=== PATIENT | female | born 1970 | race Hispanic/Latino ===

== ENCOUNTER 2018-03-30 18:25 | Emergency (ER) | payer BC ==
[2018-03-30 19:16] LABS: Absolute Monocytes 0.7 K/uL (0.1-1.3); Absolute Neutrophil 6.3 K/uL (1.8-8.0); Basophils % 0.6 % (0-1.3); Hematocrit 42.2 % (36.0-45.0); Lymphocytes % 28.7 % (15.3-44.8); MCV 85.6 fL (80-100); MPV 8.7 fL (7.6-11.3); Monocytes % 6.8 % (3.3-12.3); RBC Red Blood Cell Count 4.93 M/uL (3.86-4.86)
[2018-03-30 19:25] LABS: Potassium 3.7 mmol/L (3.5-5.1)
[2018-03-30] MEDS ORDERED: NA CHLORIDE 0.9% 1,000 ML ONE (19:33)
[2018-03-30] MEDS ORDERED: TETANUS & DIPHTHERIA TOX,ADULT 0.5 ML VIAL ONE (19:33)
[2018-03-30 19:40] LABS: Urine Blood TRACE (NEG); Urine Glucose NEGATIVE (NEG); Urine Protein TRACE (NEG); Urine Specific Gravity >1.030 (1.005-1.030)
[2018-03-30 19:40] LABS: Urine Bacteria <20 /HPF (<20); Urine Culture Reflex Order NOT NEEDED; Urine Mucus 3+ /HPF (NONE SEEN); Urine RBC <5 /HPF (NONE SEEN)
[2018-03-30] MEDS ORDERED: FENTANYL CITR 100 MCG/2 ML ONE (19:58)
--- NOTE | 2018-03-30 20:11 | RAD REPORT ---
EXAM DESCRIPTION: CT - Chest Abdomen Pelvis W Cont - 03/30/2018 7:58 pm CLINICAL HISTORY: Chest and abdomen pain. TRAUMA COMPARISON: No comparisons TECHNIQUE: Approximately 100 mL nonionic IV contrast was administered to the patient. All CT scans are performed using dose optimization technique as appropriate and may include automated exposure control or mA/KV adjustment according to patient size. FINDINGS: The lungs are clear.Cholecystectomy clips.No pleural or pericardial effusion.No intrathora cic adenopathy. The liver, spleen, pancreas, adrenal glands and kidneys are within normal limits. No bowel obstruction, free air, free fluid or abscess. Normal appendix. No pathologic lymphadenopath y in the abdomen or pelvis. No worrisome osseous finding. No fracture is seen. IUD is present uterus. IMPRESSION: No acute abnormality is detected.
--- NOTE | 2018-03-30 20:31 | ER ---
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 Abrasions noted to left flank. Respirations are even and unlabored. Care prior to arrival: None. Mechanism of Injury: Fall from ladder approximately 4 feet. Trauma event details: Injury occurred in the [facility], Injury occurred: at home. Injury occurred: March 30, 2018 Injury occurred at: 17:45. 18:30 Acuity: DARVIN 4 aj 18:30 Method Of Arrival: Wheelchair aj 19:08 Transition of care: patient was not received from another setting of care. Onset of kr2 symptoms was March 30, 2018. Risk Assessment: Do you want to hurt yourself or someone else? Patient reports no desire to harm self or others. Initial Sepsis Screen: Does the patient meet any 2 criteria? No. Patient's initial sepsis screen is negative. Does the patient have a suspected source of infection? No. Patient's initial sepsis screen is negative. 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 - Social history:: Smoking status: Patient/guardian denies using tobacco. - Ebola Screening: : Patient negative for fever greater than or equal to 101.5 degrees Fahrenheit, and additional compatible Ebola Virus Disease symptoms Patient denies exposure to infectious person Patient denies travel to an Ebola-affected area in the 21 days before illness onset No symptoms or risks identified at this time. Screenin:06 Abuse screen: Denies threats or abuse. Denies injuries from another. Nutritional kr2 screening: No deficits noted. Tuberculosis screening: No symptoms or risk factors identified. Fall Risk IV access (20 points). Primary Survey: 18:30 A: Airway: patent. Breathing/Chest: Respiratory pattern: regular, Respiratory effort: aj spontaneous, unlabored. Circulation: Skin color: pink. Disability Alert. 19:07 Reassessment Airway Airway Patent Breathing/Chest Respiratory pattern Regular kr2 Respiratory effort Spontaneous Unlabored Breath sounds Clear Chest inspection Symmetrical Circulation Heart tones Present Color [place] Temperature Warm Dry Disability Alert. Assessment: 18:30 General: Appears in no apparent distress. uncomfortable, Behavior is calm, cooperative, aj appropriate for age. Pain: Complains of pain in posterior aspect of left lateral abdomen and anterior aspect of left lateral abdomen. Neuro: Level of Consciousness is awake, alert, obeys commands, Oriented to person, place, time, situation, Appropriate for age. Respiratory: Airway is patent Respiratory effort is even, unlabored, Respiratory pattern is regular, symmetrical. Derm: Skin is intact, is healthy with good turgor, Skin is pink, warm \T\ dry. normal, Bruising that is bright red, on posterior aspect of left lateral abdomen and anterior aspect of left lateral abdomen. 19:52 Reassessment: Patient appears in no apparent distress at this time. Patient and/or kr2 family updated on plan of care and expected duration. Pain level reassessed. Patient is alert, oriented x 3, equal unlabored respirations, skin warm/dry/pink. Patient reports symptoms have improved. 21:00 Reassessment: Patient appears in no apparent distress at this time. Patient and/or kr2 family updated on plan of care and expected duration. Pain level reassessed. Patient is alert, oriented x 3, equal unlabored respirations, skin warm/dry/pink. Patient states symptoms have improved. Vital Signs: 18:30 BP 110 / 81; Pulse 95; Resp 17; Temp 97.6; Pulse Ox 100% on R/A; Weight 74.39 kg; aj Height 5 ft. 1 in. (154.94 cm); 19:10 BP 110 / 53; Pulse 100; Resp 17; Pulse Ox 100% on R/A; kr2 21:00 BP 108 / 72; Pulse 96; Resp 15; Pulse Ox 99% on R/A; kr2 18:30 Body Mass Index 30.99 (74.39 kg, 154.94 cm) aj Lauren Coma Score: 18:30 Eye Response: spontaneous(4). Verbal Response: oriented(5). Motor Response: obeys aj commands(6). Total: 15. Trauma Score (Adult): 18:30 Eye Response: spontaneous(1); Verbal Response: oriented(1); Motor Response: obeys aj commands(2); Systolic BP: > 89 mm Hg(4); Respiratory Rate: 10 to 29 per min(4); Lauren Score: 15; Trauma Score: 12 ED Course: 18:26 Patient arrived in ED. as 18:26 Wade Esquivel MD is Private Physician. as 18:31 Triage completed. aj 18:33 Arm band placed on left wrist. Patient placed in an exam room. aj 18:34 [facility]rez [facility]C [facility] snw 18:34 Mina Estrada MD is Attending Physician. snw 18:34 Daniela Villalobos, ELOISA is Primary Nurse. kr2 18:50 Inserted saline lock: 20 gauge in right antecubital area, using aseptic technique. kr2 Blood collected. Patient maintains SpO2 saturation greater than 95% on room air. 19:08 Patient has correct armband on for positive identification. Call light in reach. Side kr2 rails up X2. Adult w/ patient. playground monitor on. Pulse ox on. NIBP on. Door closed. Warm blanket given. Head of bed elevated. 19:09 Thermoregulation: warm blanket given to patient. kr2 19:22 EKG done, by ED staff, reviewed by Madonna BOYD. kr2 19:29 Urine collected: clean catch specimen, angeline colored. cb2 19:56 CT completed. Patient moved to CT via wheelchair. Patient moved back from CT. cw1 19:58 CT Chest, Abdomen, Pelvis - W/Contrast In Process Unspecified. EDMS 20:27 Wade Esquivel MD is Referral Physician. snw 21:00 No provider procedures requiring assistance completed. IV discontinued, intact, kr2 bleeding controlled, No redness/swelling at site. Pressure dressing applied. Administered Medications: Discontinued: NS 0.9% 1000 ml IV at 125 ml/hr continuous 18:59 Drug: fentaNYL (PF) 50 mcg Route: IVP; Site: right antecubital; kr2 19:06 Follow up: Response: No adverse reaction; Pain is decreased kr2 19:00 Drug: Tetanus-Diphtheria Toxoid Adult 0.5 ml {Padder: [employer]. Exp: kr2 05/22/2020. Lot #: [id number]. } Route: IM; Site: left deltoid; 19:22 Follow up: Response: No adverse reaction kr2 19:05 Drug: NS 0.9% 1000 ml Route: IV; Rate: 125 ml/hr; Site: right antecubital; kr2 03/31 01:28 Follow up: Response: No adverse reaction; IV Status: Order to discontinue infusion kr2 03/30 20:00 Drug: fentaNYL (PF) 50 mcg Route: IVP; Site: right antecubital; kr2 20:15 Follow up: Response: No adverse reaction; Pain is decreased kr2 20:55 Drug: Valium 2 mg Route: PO; kr2 21:00 Follow up: Response: Medication administered at discharge. kr2 Intake: 21:00 PO: 0ml; Total: 0ml. kr2 Outcome: 20:30 Discharge ordered by . snw 20:55 Discharged to home via wheelchair, with family. kr2 20:55 Condition: good 20:55 Discharge instructions given to patient, family, Instructed on discharge instructions, follow up and referral plans. medication usage, incentive spirometry Demonstrated understanding of instructions, follow-up care, medications, incentive spirometry Prescriptions given X 3. 21:00 Patient's length of stay in the Emergency Department was greater than 2 hours. kr2 21:04 Patient left the ED. kr2 Signatures: Dispatcher [employer] EDLibby Kessler RN RN aj Therrien, Shelly, MEDICAL RECORD LIBRARIANS TEACHER-C MEDICAL RECORD LIBRARIANS TEACHER-[place] Joan Norman Crystal cw1 Manny Lynne Karey, RN RN kr2 Corrections: (The following items were deleted from the chart) 03/31 01:03/30 19:00 No provider procedures requiring assistance completed. kr2 kr2 03/31 01:03/30 19:00 Patient did not have IV access during this emergency room visit. kr2 kr2
--- NOTE | 2018-03-30 20:31 | EDPHYS ---
Physician Documentation [facility] Name: Isidra Gloria Age: 47 yrs Sex: Female : 1970 Arrival Date: 03/30/2018 Time: 18:26 Bed 23 Private MD: Wade Esquivel R ED Physician Mina Estrada HPI: 03/30 18:48 This 47 yrs old Female presents to ER via Wheelchair with complaints of Fall snw Injury - L Side Pain. 18:48 Details of fall: The patient fell from a height, from a ladder, in a freefall-type snw manner, landed on stairs on left chest wall. 18:48 Onset: The symptoms/episode began/occurred suddenly, just prior to arrival, and became snw persistent. Associated injuries: The patient sustained injury to the chest, injury to the abdomen, specifically the posterior aspect of left lateral abdomen and anterior aspect of left lateral abdomen, abrasion, contusion, tenderness. Severity of symptoms: At their worst the symptoms were moderate. The patient has not experienced similar symptoms in the past. The patient has not recently seen a physician. 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 - Social history:: Smoking status: Patient/guardian denies using tobacco. - Ebola Screening: : Patient negative for fever greater than or equal to 101.5 degrees Fahrenheit, and additional compatible Ebola Virus Disease symptoms Patient denies exposure to infectious person Patient denies travel to an Ebola-affected area in the 21 days before illness onset No symptoms or risks identified at this time. ROS: 18:47 Constitutional: Negative for fever, chills, and weight loss, Eyes: Negative for injury, snw pain, redness, and discharge, ENT: Negative for injury, pain, and discharge, Neck: Negative for injury, pain, and swelling, Cardiovascular: Negative for chest pain, palpitations, and edema, Abdomen/GI: Negative for abdominal pain, nausea, vomiting, diarrhea, and constipation, : Negative for injury, bleeding, discharge, and swelling, MS/Extremity: Negative for injury and deformity, Skin: Negative for injury, rash, and discoloration, Neuro: Negative for headache, weakness, numbness, tingling, and seizure. 18:47 Respiratory: Positive for pleurisy, of the left lateral posterior chest and left lateral anterior chest. 18:47 Back: Positive for injury or acute deformity, pain with movement, of the left scapular area, left subscapular area and left mid back. Exam: 18:42 Constitutional: This is a well developed, well nourished patient who is awake, alert, snw and in no acute distress. Head/Face: Normocephalic, atraumatic. Eyes: Pupils equal round and reactive to light, extra-ocular motions intact. Lids and lashes normal. Conjunctiva and sclera are non-icteric and not injected. Cornea within normal limits. Periorbital areas with no swelling, redness, or edema. ENT: Nares patent. No nasal discharge, no septal abnormalities noted. Tympanic membranes are normal and external auditory canals are clear. Oropharynx with no redness, swelling, or masses, exudates, or evidence of obstruction, uvula midline. Mucous membranes moist. Neck: Trachea midline, no thyromegaly or masses palpated, and no cervical lymphadenopathy. Supple, full range of motion without nuchal rigidity, or vertebral point tenderness. No Meningismus. Cardiovascular: Regular rate and rhythm with a normal S1 and S2. No gallops, murmurs, or rubs. Normal PMI, no JVD. No pulse deficits. Abdomen/GI: Soft, non-tender, with normal bowel sounds. No distension or tympany. No guarding or rebound. No evidence of tenderness throughout. MS/ Extremity: Pulses equal, no cyanosis. Neurovascular intact. Full, normal range of motion. Neuro: Awake and alert, GCS 15, oriented to person, place, time, and situation. Cranial nerves II-XII grossly intact. Motor strength 5/5 in all extremities. Sensory grossly intact. Cerebellar exam normal. Normal gait. Psych: Awake, alert, with orientation to person, place and time. Behavior, mood, and affect are within normal limits. 18:42 Chest/axilla: Inspection: abrasion, that is moderate, of the left lateral posterior chest and left lateral anterior chest Palpation: crepitus, is not appreciated, tenderness, that is moderate. 18:42 Respiratory: the patient does not display signs of respiratory distress, Respirations: shallow respirations, that is moderate, splinting, that is severe, Breath sounds: are clear throughout, no bronchial sounds. 18:42 Back: pain, that is moderate, of the left subscapular area and left mid back, ROM is painful, CVA tenderness, is absent, vertebral tenderness, is not appreciated. Vital Signs: 18:30 BP 110 / 81; Pulse 95; Resp 17; Temp 97.6; Pulse Ox 100% on R/A; Weight 74.39 kg; aj Height 5 ft. 1 in. (154.94 cm); 19:10 BP 110 / 53; Pulse 100; Resp 17; Pulse Ox 100% on R/A; kr2 21:00 BP 108 / 72; Pulse 96; Resp 15; Pulse Ox 99% on R/A; kr2 18:30 Body Mass Index 30.99 (74.39 kg, 154.94 cm) aj [place] Coma Score: 18:30 Eye Response: spontaneous(4). Verbal Response: oriented(5). Motor Response: obeys aj commands(6). Total: 15. Trauma Score (Adult): 18:30 Eye Response: spontaneous(1); Verbal Response: oriented(1); Motor Response: obeys aj commands(2); Systolic BP: > 89 mm Hg(4); Respiratory Rate: 10 to 29 per min(4); Lauren Score: 15; Trauma Score: 12 MDM: 18:34 Patient medically screened. snw 20:43 Data reviewed: vital signs, nurses notes. Data interpreted: Pulse oximetry: on room air snw is 100 %. Interpretation: normal. Counseling: I had a detailed discussion with the patient and/or guardian regarding: the historical points, exam findings, and any diagnostic results supporting the discharge/admit diagnosis, lab results, radiology results, the need for outpatient follow up, to return to the emergency department if symptoms worsen or persist or if there are any questions or concerns that arise at home. Special discussion: Based on the patient's history, exam, and Dx evaluation, there is no indication for emergent intervention or inpatient Tx. It is understood by the patient/guardian that if the Sx's persist or worsen they need to return immediately for re-evaluation. Based on the history and exam findings, there is no indication for further emergent testing or inpatient evaluation. I discussed with the patient/guardian the need to see the primary care provider for further evaluation of the symptoms. 03/30 18:36 Order name: Urine Microscopic Only; Complete Time: 19:41 snw 03/30 18:36 Order name: CBC with Diff; Complete Time: 19:24 snw 03/30 18:36 Order name: Chem 7; Complete Time: 19:26 snw 03/30 18:36 Order name: TS; Complete Time: 20:25 snw 03/30 19:36 Order name: Urine Dipstick--Ancillary (enter results); Complete Time: 19:40 ms 03/30 19:36 Order name: Urine --Ancillary (enter results); Complete Time: 19:40 ms 03/30 18:36 Order name: CT Chest, Abdomen, Pelvis - W/Contrast; Complete Time: 20:25 snw 03/30 19:11 Order name: EKG; Complete Time: 19:11 snw 03/30 20:27 Order name: INCENTIVE SPIROMETRY w 03/30 18:36 Order name: Urine Test (obtain specimen); Complete Time: 19:31 snw 03/30 18:36 Order name: Urine Dipstick-Ancillary (obtain specimen); Complete Time: 19:31 snw 03/30 19:11 Order name: EKG - Nurse/Tech; Complete Time: 19:22 snw Administered Medications: Discontinued: NS 0.9% 1000 ml IV at 125 ml/hr continuous 18:59 Drug: fentaNYL (PF) 50 mcg Route: IVP; Site: right antecubital; kr2 19:06 Follow up: Response: No adverse reaction; Pain is decreased kr2 19:00 Drug: Tetanus-Diphtheria Toxoid Adult 0.5 ml {Cop: [employer]. Exp: kr2 05/22/2020. Lot #: [id number]. } Route: IM; Site: left deltoid; 19:22 Follow up: Response: No adverse reaction kr2 19:05 Drug: NS 0.9% 1000 ml Route: IV; Rate: 125 ml/hr; Site: right antecubital; kr2 03/31 01:28 Follow up: Response: No adverse reaction; IV Status: Order to discontinue infusion kr2 03/30 20:00 Drug: fentaNYL (PF) 50 mcg Route: IVP; Site: right antecubital; kr2 20:15 Follow up: Response: No adverse reaction; Pain is decreased kr2 20:55 Drug: Valium 2 mg Route: PO; kr2 21:00 Follow up: Response: Medication administered at discharge. kr2 Disposition: 03/31 07:13 Co-signature as Attending Physician, Mina Estrada MD I agree with the assessment and kdr plan of care. Disposition: 03/30/18 20:30 Discharged to Home. Impression: Fall (on) (from) unspecified stairs and steps, Abrasion of left back wall of thorax. - Condition is Stable. - Discharge Instructions: Abrasion, Chest Contusion, Adult, Fall Prevention in the Home. - Prescriptions for Tylenol- Codeine #3 300-30 mg Oral Tablet - take 2 tablets by ORAL route every 6 hours As needed; 14 tablet. Diclofenac Sodium 75 mg Oral Tablet Sustained Release - take 1 tablet by ORAL route 2 times per day; 30 tablet. orphenadrine citrate 100 mg Oral Tablet Sustained Release - take 1 tablet by ORAL route 2 times per day As needed; 20 tablet. - Medication Reconciliation Form, Thank You Letter, Antibiotic Education, Prescription Opioid Use form. - Follow up: Wade Esquivel MD; When: 2 - 3 days; Reason: Recheck today's complaints, Continuance of care, Re-evaluation by your physician. Signatures: Dispatcher [employer] Libby Bryson RN RN aj Rittger, Kevin, MD MD [facility] Madonna Torrez FNP-C SENIOR BUSINESS MANAGER-CsnDaniela Ramos RN RN kr2 Corrections: (The following items were deleted from the chart) 03/30 21:04 20:30 03/30/2018 20:30 Discharged to Home. Impression: Fall (on) (from) unspecified kr2 stairs and steps; Abrasion of left back wall of thorax. Condition is Stable. Forms are Medication Reconciliation Form, Thank You Letter, Antibiotic Education, Prescription Opioid Use. Follow up: Wade Esquivel; When: 2 - 3 days; Reason: Recheck today's complaints, Continuance of care, Re-evaluation by your physician. snw
[2018-03-30] MEDS ORDERED: DIAZEPAM 2 MG TABLET ONE (20:52)
--- NOTE | 2018-03-31 09:32 | EKG ---
Test Date: 2018-03-30 Test Time: 19:16:11 Hat Forming Machine Feeder: MAVERICK MEASUREMENT RESULTS: Intervals: Rate: 77 GA: 130 QRSD: 72 QT: 362 QTc: 409 [place]: P: 52 GA: 130 QRS: 47 T: 60 INTERPRETIVE STATEMENTS: Normal sinus rhythm Low voltage QRS Abnormal ECG Compared to ECG 12/27/2008 21:09:12 Low QRS voltage now present Electronically Signed On 03-31-18 09:31:42 CDT by Ayan Dixon
== END 2018-03-30 21:04 | disposition home or self-care (01) ==
LOC: ER 18:25
DX: S20.412A Abrasion of left back wall of thorax, initial encounter (principal); W11.XXXA Fall on and from ladder, initial encounter; Y93.9 Activity, unspecified; Y92.9 Unspecified place or not applicable; Z23 Encounter for immunization; Z98.82 Breast implant status
CPT/HCPCS: 36415; 71260; 74177; 80048; 81003; 81015; 81025; 85025; 86850; 86900; 86901; 90714; 93005; 96361; 96374; 99285; J3010; J7030; Q9967

== ENCOUNTER 2020-03-07 09:40 | Emergency (ER) | payer BC ==
[2020-03-07] MEDS ORDERED: dexAMETHasone 10 MG/ML VIAL ONE (10:17)
--- NOTE | 2020-03-07 10:52 | EDPHYS ---
Physician Documentation [facility] Name: Isidra Gloria Age: 49 yrs Sex: Female : 1970 Arrival Date: 03/07/2020 Time: 09:44 Bed 4 Private MD: Wade Esquivel R ED Physician Kaylene Figueroa HPI: 03/07 10:03 This 49 yrs old Female presents to ER via Ambulatory with complaints of Sore pm1 Throat. 10:03 The patient presents with sore throat. The patient describes throat pain as raw, pm1 scratchy. Onset: The symptoms/episode began/occurred yesterday. Severity of symptoms: in the emergency department the symptoms are actually worse. Modifying factors: The symptoms are alleviated by nothing, the symptoms are aggravated by swallowing, Denies contact with similarly ill indivduals. Associated signs and symptoms: Pertinent positives: earache, subjective fever, Pertinent negatives chest pain, cough, rhinorrhea, shortness of breath, vomiting. The patient has experienced similar episodes in the past, today's symptoms are similar, to previous strep throat. The patient has not recently seen a physician, the patient's primary care provider is Dr. Esquivel. 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 - Social history:: Smoking status: Patient denies any tobacco usage or history of. ROS: 10:03 Eyes: Negative for injury, pain, redness, and discharge. pm1 10:03 Neck: Negative for injury, pain, and swelling, Cardiovascular: Negative for chest pain, palpitations, and edema, Respiratory: Negative for shortness of breath, cough, wheezing, and pleuritic chest pain, Abdomen/GI: Negative for abdominal pain, nausea, vomiting, diarrhea, and constipation, Back: Negative for injury and pain, MS/Extremity: Negative for injury and deformity, Skin: Negative for injury, rash, and discoloration, Neuro: Negative for headache, weakness, numbness, tingling, and seizure. 10:03 Constitutional: Positive for body aches, Negative for fever. 10:03 ENT: Positive for sore throat, Negative for drainage from ear(s), ear pain, difficulty handling secretions, hoarseness. Exam: 10:03 Constitutional: This is a well developed, well nourished patient who is awake, alert, pm1 and in no acute distress. Head/Face: Normocephalic, atraumatic. 10:03 Neck: Trachea midline, no thyromegaly or masses palpated, and no cervical lymphadenopathy. Supple, full range of motion without nuchal rigidity, or vertebral point tenderness. No Meningismus. Chest/axilla: Normal chest wall appearance and motion. Nontender with no deformity. No lesions are appreciated. 10:03 Back: No spinal tenderness. No costovertebral tenderness. Full range of motion. Skin: Warm, dry with normal turgor. Normal color with no rashes, no lesions, and no evidence of cellulitis. MS/ Extremity: Pulses equal, no cyanosis. Neurovascular intact. Full, normal range of motion. 10:03 ENT: External ear(s): no acute changes, Ear canal(s): are normal, TM's: are normal, Mouth: no acute changes, Posterior pharynx: Airway: patent, Tonsils: bilaterally enlarged, with erythema, no exudate, no ulcerations, erythema, that is moderate, exudate, is not appreciated, peritonsillar mass, is not appreciated, pooling of secretions, is not appreciated. 10:03 Cardiovascular: Exam negative for acute changes, Rate: normal, Rhythm: regular, Pulses: no pulse deficits are appreciated. 10:03 Respiratory: Exam negative for acute changes, respiratory distress, shortness of breath, wheezing. 10:03 Abdomen/GI: Inspection: abdomen appears normal, Palpation: abdomen is soft and non-tender, in all quadrants. 10:03 Neuro: Exam negative for acute changes, Orientation: is normal, Mentation: is normal, Motor: is normal, moves all fours. Vital Signs: 09:52 BP 120 / 78; Pulse 105; Resp 20; Temp 98.7; Pulse Ox 98% ; Weight 80.29 kg; Height 5 sv ft. 0 in. (152.40 cm); Pain 8/10; 09:52 Body Mass Index 34.57 (80.29 kg, 152.40 cm) sv MDM: 09:53 Patient medically screened. pm1 10:07 Data reviewed: vital signs. Data interpreted: Pulse oximetry: on room air is 98 %. pm1 Interpretation: normal. 10:51 Counseling: I had a detailed discussion with the patient and/or guardian regarding: the pm1 historical points, exam findings, and any diagnostic results supporting the discharge/admit diagnosis, lab results, the need for outpatient follow up, to return to the emergency department if symptoms worsen or persist or if there are any questions or concerns that arise at home. 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 pm1 03/07 10:02 Order name: Flu pm1 03/07 10:02 Order name: Strep pm1 03/07 10:03 Order name: Influenza Screen (A ; Complete Time: 10:51 EDMS 03/07 10:03 Order name: Group A Streptococcus Rapid Sc; Complete Time: 10:51 EDMS 03/07 10:49 Order name: Throat Culture EDMS Administered Medications: 10:21 Drug: Decadron 10 mg Route: IM; Site: right deltoid; ph 19:21 Follow up: Response: No adverse reaction ph 11:15 Drug: Augmentin 875 mg Route: PO; ph 19:21 Follow up: Response: No adverse reaction ph Disposition: 03/07/20 10:52 Discharged to Home. Impression: Acute pharyngitis. - Condition is Stable. - Discharge Instructions: Pharyngitis. - Prescriptions for Augmentin 875- 125 mg Oral Tablet - take 1 tablet by ORAL route every 12 hours for 10 days; 20 tablet. Tylenol- Codeine #3 300-30 mg Oral Tablet - take 2 tablets by ORAL route every 6 hours As needed; 20 tablet. - Work release form, Medication Reconciliation Form, Thank You Letter, Antibiotic Education, Prescription Opioid Use form. - Follow up: Emergency Department; When: As needed; Reason: Worsening of condition. Follow up: Private Physician; When: 2 - 3 days; Reason: Recheck today's complaints, Continuance of care, Re-evaluation by your physician. - Problem is new. - Symptoms have improved. Signatures: Dispatcher [employer] Suzi Queen RN RN Isidra Major RN RN ph Marinas, Kvng, BIKE ASSEMBLER BIKE ASSEMBLER pm1 Corrections: (The following items were deleted from the chart) 11:19 10:52 03/07/2020 10:52 Discharged to Home. Impression: Acute pharyngitis. Condition is ph Stable. Forms are Medication Reconciliation Form, Thank You Letter, Antibiotic Education, Prescription Opioid Use. Follow up: Emergency Department; When: As needed; Reason: Worsening of condition. Follow up: Private Physician; When: 2 - 3 days; Reason: Recheck today's complaints, Continuance of care, Re-evaluation by your physician. Problem is new. Symptoms have improved. pm1
--- NOTE | 2020-03-07 10:52 | ER ---
Nurse's Notes [facility] Name: Isidra Gloria Age: 49 yrs Sex: Female : 1970 Arrival Date: 03/07/2020 Time: 09:44 Bed 4 Private MD: Wade Esquivel R Diagnosis: Acute pharyngitis Presentation: 03/07 09:52 Chief complaint: Patient states: swollen tonsils, hard to swallow, feels hot x 1 day. sv Pt took Tylenol 4 tabs this morning at 0600. Coronavirus screen: Proceed with normal triage. Patient denies a cough. Patient denies shortness of breath or difficulty breathing. Patient denies measured and/or subjective temperature greater than 100.4F prior to today's visit. Patient denies travel on a cruise ship or to a country the [facility] currently lists as an affected area. Patient denies contact with known and/or suspected case of COVID-19. Ebola Screen: No symptoms or risks identified at this time. Initial Sepsis Screen: Does the patient meet any 2 criteria? HR > 90 bpm. No. Patient's initial sepsis screen is negative. Does the patient have a suspected source of infection? Yes: Other: sore throat. Risk Assessment: Do you want to hurt yourself or someone else? Patient reports no desire to harm self or others. Onset of symptoms was March 06, 2020. 09:52 Method Of Arrival: Ambulatory sv 09:52 Acuity: DARVIN 4 sv Triage Assessment: 09:56 General: Appears in no apparent distress. uncomfortable, Behavior is calm, cooperative, sv appropriate for age. Pain: Complains of pain in left aspect of posterior pharynx and right aspect of posterior pharynx Pain currently is 8 out of 10 on a pain scale. Current management is with Tylenol taken today at 0600 and sore throat meds and Tramadol taken last night. Neuro: Level of Consciousness is awake, alert, obeys commands, Oriented to person, place, time, situation. Respiratory: Respiratory effort is even, unlabored. 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 - Social history:: Smoking status: Patient denies any tobacco usage or history of. Screenin:22 Abuse screen: Denies threats or abuse. Denies injuries from another. Nutritional ph screening: No deficits noted. Tuberculosis screening: No symptoms or risk factors identified. Fall Risk None identified. Assessment: 10:22 General: Appears in no apparent distress. comfortable, well groomed, Behavior is calm, ph cooperative, appropriate for age. Pain: Complains of pain in throat. Neuro: Level of Consciousness is awake, alert, obeys commands, Oriented to person, place, time, situation. Cardiovascular: Capillary refill < 3 seconds in bilateral fingers Patient's skin is warm and dry. Respiratory: Airway is patent Respiratory effort is even, unlabored, Respiratory pattern is regular, symmetrical, Denies cough, shortness of breath. GI: No signs and/or symptoms were reported involving the gastrointestinal system. Patient currently denies nausea, vomiting. EENT: Throat is reddened has enlarged tonsils bilaterally. Derm: Skin is intact, is healthy with good turgor, Skin is pink, warm \T\ dry. Musculoskeletal: Circulation, motion, and sensation intact. Range of motion: intact in all extremities. Vital Signs: 09:52 BP 120 / 78; Pulse 105; Resp 20; Temp 98.7; Pulse Ox 98% ; Weight 80.29 kg; Height 5 sv ft. 0 in. (152.40 cm); Pain 8/10; 09:52 Body Mass Index 34.57 (80.29 kg, 152.40 cm) sv ED Course: 09:44 Patient arrived in ED. mr 09:44 Wade Esquivel MD is Private Physician. mr 09:47 Kvng Arevalo NP is PHCP. pm1 09:47 Kaylene Figueroa MD is Attending Physician. pm1 09:48 Isidra Major, ELOISA is Primary Nurse. ph 09:55 Triage completed. sv 09:56 Arm band placed on. sv 10:22 Patient has correct armband on for positive identification. Bed in low position. Call ph light in reach. Side rails up X 1. Pulse ox on. NIBP on. 10:24 Flu and/or RSV swab sent to lab. Strep swab sent to lab. ph 11:15 No provider procedures requiring assistance completed. Patient did not have IV access ph during this emergency room visit. Administered Medications: 10:21 Drug: Decadron 10 mg Route: IM; Site: right deltoid; ph 19:21 Follow up: Response: No adverse reaction ph 11:15 Drug: Augmentin 875 mg Route: PO; ph 19:21 Follow up: Response: No adverse reaction ph Outcome: 10:52 Discharge ordered by MD. pm1 11:19 Patient left the ED. ph 11:19 Discharged to home ambulatory. ph 11:19 Condition: good 11:19 Discharge instructions given to patient, Instructed on discharge instructions, follow up and referral plans. medication usage, Demonstrated understanding of instructions, follow-up care, medications, Prescriptions given X 2. Signatures: Suzi Christopher RN ELOISA Jamilah Garcia Patricia, RN RN Kvng Arevalo, EM HAZARDOUS SUBSTANCES SCIENTIST pm1 Corrections: (The following items were deleted from the chart) 09:57 09:52 Chief complaint: Patient states: swollen tonsils, hard to swallow, feels hot x 1 sv day. sv
[2020-03-07] MEDS ORDERED: AMOX TR/K CLAV 400MG CHEW TAB PO ONE (11:22)
[2020-03-07 11:52] VITALS: BP 120/78; TEMP 98.7; O2SAT 98
== END 2020-03-07 11:19 | disposition home or self-care (01) ==
LOC: ER 09:40
DX: J02.9 Acute pharyngitis, unspecified (principal); Z98.82 Breast implant status
CPT/HCPCS: 87070; 87081; 87804 ×2; 96372; 99284; J1100

== ENCOUNTER 2021-07-28 06:21 | Emergency (ER) | payer BC, SELFPAY ==
[2021-07-28] MEDS ORDERED: HYDROCOD 2.5mg-ACETAMIN 108mg/5mL Soln ONE (07:19)
[2021-07-28] MEDS ORDERED: NA CHLORIDE 0.9% 1,000 ML ONE ×2 (07:20→10:47)
[2021-07-28] MEDS ORDERED: dexAMETHasone 10 MG/ML VIAL ONE (07:20)
[2021-07-28 08:05] LABS: Absolute Lymphocytes (CBC) 1.5 K/uL (0.7-4.9); Basophils % 0.4 % (0-1.3); Hematocrit 43.6 % (36.0-45.0); Lymphocytes % 7.1 % (15.3-44.8); MPV 8.9 fL (7.6-11.3); RBC Red Blood Cell Count 4.96 M/uL (3.86-4.86)
[2021-07-28 08:08] LABS: Potassium 3.5 mmol/L (3.5-5.1)
[2021-07-28] MEDS ORDERED: AMPICILLIN/SULBACTAM 3GM/VIAL ONE (08:15)
[2021-07-28] MEDS ORDERED: NA CHLORIDE 0.9% 100 ML ONE (08:16)
--- NOTE | 2021-07-28 08:40 | RAD REPORT ---
EXAM DESCRIPTION: CT - Soft Tissue Neck W/Contr - 07/28/2021 8:28 am CLINICAL HISTORY: Neck pain with sore throat COMPARISON: None. TECHNIQUE: Computed axial tomography of the neck was obtained. 50 cc Isovue 300 was administered in travenously. Coronal and sagittal reconstruction was performed. All CT scans are performed using dose optimization technique as appropriate and may include automated exposure control or mA/KV adjustment according to patient size. FINDINGS: The tonsils are mildly enlarged and inhomogeneous. The parapharyngeal fat is clear. The remainder of the pharynx, tongue base, larynx and subglottic trachea appear unremarkable The parotid, submandibular and thyroid glands appear unremarkable. No lymphadenopathy is seen Moderate to marked ethmoid sinusitis. Mild sphenoid sinusitis IMPRESSION: Tonsils are mildly enlarged inhomogeneous which may indicate a tonsillitis. Sinusitis
[2021-07-28 08:50] LABS: Urine Blood Negative (Negative); Urine Glucose Negative (Negative); Urine Protein Negative (Negative)
[2021-07-28] MEDS ORDERED: LIDOCAINE 2% MPF 5 ML VIAL ONE (09:08)
[2021-07-28] MEDS ORDERED: MAGNES/ALUMIN/SIMET 30ML UCUP ONE (09:08)
[2021-07-28] MEDS ORDERED: LIDOCAINE VISCOUS 2% SOLN 15 ML UDC ONE (09:13)
[2021-07-28 09:34] LABS: Blood Morphology Comment NOT SEEN (NOT SEEN); Platelet Estimate ADEQ
--- NOTE | 2021-07-28 09:45 | ER ---
Nurse's Notes [facility] Name: Isidra Gloria Age: 50 yrs Sex: Female : 1970 Arrival Date: 07/28/2021 Time: 06:26 Bed 8 Private MD: Diagnosis: Acute tonsillitis, unspecified Presentation: 07/28 07:15 Chief complaint: Patient states: Sore throat, difficulty swallowing, tonsils swollen. ll3 Coronavirus screen: Vaccine status: Patient reports being unvaccinated. Client denies travel out of the [place] in the last 14 days. At this time, the client does not indicate any symptoms associated with coronavirus-19. Ebola Screen: No symptoms or risks identified at this time. Initial Sepsis Screen: Does the patient meet any 2 criteria? No. Patient's initial sepsis screen is negative. Does the patient have a suspected source of infection? No. Patient's initial sepsis screen is negative. Risk Assessment: Do you want to hurt yourself or someone else? Patient reports no desire to harm self or others. Onset of symptoms was July 25, 2021. 07:15 Method Of Arrival: Ambulatory ll3 07:15 Acuity: DARVIN 3 ll3 Triage Assessment: 07:15 General: Appears in no apparent distress. uncomfortable, Behavior is calm, cooperative. ll3 Pain: Complains of pain in left aspect of posterior pharynx and right aspect of posterior pharynx Pain does not radiate. Pain currently is 8 out of 10 on a pain scale. Quality of pain is described as tender, Pain began 2-3 days ago. Is continuous, Aggravated by eating, drinking, Noted to be grimacing, moaning. EENT: Oral mucosa is moist. Throat is reddened has enlarged tonsils bilaterally Reports difficulty swallowing since 4 days. Neuro: Level of Consciousness is awake, alert, obeys commands, Oriented to person, place, time, situation, Speech is normal, Facial symmetry appears normal. Cardiovascular: Patient's skin is warm and dry. Respiratory: Airway is patent Trachea midline Respiratory effort is even, unlabored, Respiratory pattern is regular, symmetrical. Derm: Skin is pink, warm \T\ dry. 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 - Social history:: Smoking status: Patient denies any tobacco usage or history of. Screenin:15 Abuse screen: Denies threats or abuse. Nutritional screening: No deficits noted. ll3 Tuberculosis screening: No symptoms or risk factors identified. Fall Risk IV access (20 points). Assessment: 07:15 General: See triage . ll3 08:20 Reassessment: Patient appears in no apparent distress at this time. No changes from ll3 previously documented assessment. Patient and/or family updated on plan of care and expected duration. Pain level reassessed. Patient is alert, oriented x 3, equal unlabored respirations, skin warm/dry/pink. 09:00 Reassessment: Pt provided with water for PO challenge and reports inability to swallow jl7 due to pain, ERP notified. 09:20 Reassessment: Patient appears in no apparent distress at this time. No changes from ll3 previously documented assessment. Patient and/or family updated on plan of care and expected duration. Pain level reassessed. Patient is alert, oriented x 3, equal unlabored respirations, skin warm/dry/pink. 09:35 Reassessment: Pt provided with GI cocktail, pt reports inability to swallow the GI jl7 cocktail due to pain with swallowing. 10:17 Reassessment: Patient appears in no apparent distress at this time. No changes from ll3 previously documented assessment. Patient and/or family updated on plan of care and expected duration. Pain level reassessed. Patient is alert, oriented x 3, equal unlabored respirations, skin warm/dry/pink. 11:24 Reassessment: Patient appears in no apparent distress at this time. No changes from ll3 previously documented assessment. Patient and/or family updated on plan of care and expected duration. Pain level reassessed. Patient is alert, oriented x 3, equal unlabored respirations, skin warm/dry/pink. Vital Signs: 07:15 BP 128 / 80; Pulse 102; Resp 16; Temp 99.3; Pulse Ox 99% ; Weight 83.91 kg (R); Height ll3 5 ft. 0 in. (152.40 cm) (R); 08:30 BP 112 / 74; Pulse 102; Resp 16; Pulse Ox 99% ; ll3 09:21 BP 110 / 73; Pulse 104; Resp 14; Pulse Ox 97% ; ll3 10:16 BP 117 / 71; Pulse 91; Resp 16; Pulse Ox 96% ; ll3 10:58 BP 116 / 78; Pulse 104; Resp 16; Pulse Ox 100% ; ll3 07:15 Body Mass Index 36.13 (83.91 kg, 152.40 cm) ll3 ED Course: 06:26 Patient arrived in ED. wm 06:55 Cornelio Guidry PA is PHCP. cp 06:55 Mina Estrada MD is Attending Physician. cp 07:15 Zahra Wade, ELOISA is Primary Nurse. ll3 07:15 Patient has correct armband on for positive identification. Placed in gown. Bed in low ll3 position. Call light in reach. 07:15 Inserted saline lock: 22 gauge in right antecubital area, using aseptic technique. ll3 Blood collected. 07:56 Triage completed. ll3 08:02 Arm band placed on. ll3 08:11 CBC with Diff Sent. ll3 08:20 Inserted saline lock: 20 gauge in left hand, using aseptic technique. Blood collected. jl7 08:24 Second set of blood cultures drawn by me. jl7 08:28 CT Soft Tissue Neck W/contr In Process Unspecified. EDMS 08:30 First set of blood cultures drawn by me. COVID swab sent to lab. Strep swab sent to lab.[email or web address] 08:54 Kaylene Figueroa MD is Attending Physician. cp 09:20 Urine --Ancillary (enter results) Sent. ll3 11:38 No provider procedures requiring assistance completed. Patient transferred, IV remains ll3 in place. intact, No redness/swelling at site. Administered Medications: 07:51 Drug: NS 0.9% 1000 ml Route: IV; Rate: 1 bolus; Site: right antecubital; ll3 10:33 Follow up: Response: No adverse reaction; IV Status: Completed infusion; IV Intake: ll3 1000ml 07:51 Drug: Lortab Liquid 10 ml Route: PO; ll3 09:20 Follow up: Response: No adverse reaction ll3 07:51 Drug: Decadron - Dexamethasone 10 mg Route: IVP; Site: right antecubital; ll3 08:30 Follow up: Response: No adverse reaction ll3 08:57 Drug: Unasyn (ampicillin-sulbactam) 3 grams Route: IVPB; Infused Over: 30 mins; Site: ll3 left antecubital; 10:05 Follow up: Response: No adverse reaction; IV Status: Completed infusion ll3 10:05 Follow up: IV Intake: 100ml ll3 09:19 Drug: GI Cocktail without - (Maalox Suspension 30 ml, Lidocaine Liquid 2 % 15 ll3 ml) Route: PO; 09:57 Follow up: Response: No adverse reaction; No change in condition ll3 09:57 Drug: morphine 4 mg Route: IVP; Site: right antecubital; ll3 10:33 Follow up: Response: No adverse reaction; Marked relief of symptoms ll3 10:57 Drug: NS 0.9% 1000 ml Route: IV; Rate: 125 ml/hr; Site: right antecubital; ll3 11:37 Follow up: Response: No adverse reaction; IV Status: Infusion continued upon transfer ll3 10:57 Drug: morphine 4 mg Route: IVP; Site: right antecubital; ll3 11:24 Follow up: Response: No adverse reaction; Pain is decreased ll3 Intake: 10:05 IV: 100ml; Total: 100ml. ll3 10:33 IV: 1000ml; Total: 1100ml. ll3 Outcome: 09:45 ER care complete, transfer ordered by MD. palumbo 11:38 Transferred by ground EMS to [facility]. ll3 11:38 Condition: stable 11:38 Discharge instructions given to patient, Instructed on the need for transfer. 11:43 Patient left the ED. ll3 Signatures: Dispatcher [employer] EDMS Cornelio Guidry PA PA cp Leal, Jahala, RN RN [email or web address] Florina Dominguez Lynsea, RN RN ll3
--- NOTE | 2021-07-28 09:45 | EDPHYS ---
Physician Documentation [facility] Name: Isidra Gloria Age: 50 yrs Sex: Female : 1970 Arrival Date: 07/28/2021 Time: 06:26 Bed 8 Private MD: ED Physician Kaylene Figueroa HPI: 07/28 07:15 This 50 yrs old Female presents to ER via Ambulatory with complaints of cp Swollen Glands. 07:15 The patient presents with sore throat, dysphagia. cp 07:15 The patient describes throat pain as constant. cp 07:15 Onset: The symptoms/episode began/occurred 3 day(s) ago. Severity of symptoms: in the emergency department the symptoms are actually worse. Associated signs and symptoms: Pertinent positives: dysphagia, earache, Pertinent negatives cough, fever, flu-like symptoms. 07:15 The patient has been recently seen by a physician: the patient's primary care provider, cp with similar presenting complaints, prescribed Augmentin. Patient reports she was able to take two doses yesterday but unable to swallow tablets today. RN TRAUMA: 09:43 LMP N/A - control method [id number] Historical: - Allergies: 07:15 No Known Allergies; ll3 - Home Meds: 07:15 None [Active]; ll3 - PMHx: 07:15 None; ll3 - PSHx: 07:15 Ligation of fallopian tube; Cholecystectomy; ll3 - Immunization history:: Client reports having NOT received the Covid vaccine. - Social history:: Smoking status: Patient denies any tobacco usage or history of. ROS: 07:20 Constitutional: Positive for poor PO intake, Negative for body aches, chills, fever. cp 07:20 Eyes: Negative for injury, pain, redness, and discharge. cp 07:20 ENT: Positive for difficulty swallowing, ear pain, sore throat, Negative for drainage from ear(s), difficulty handling secretions, hoarseness. 07:20 Neck: Positive for swollen nodes, Negative for stiffness. 07:20 Cardiovascular: Negative for chest pain, palpitations. 07:20 Respiratory: Negative for cough, shortness of breath, wheezing. 07:20 Abdomen/GI: Positive for nausea, Negative for abdominal pain, vomiting, diarrhea, constipation. 07:20 Neuro: Negative for altered mental status, headache, weakness. 07:20 All other systems are negative. cp Exam: 07:25 Constitutional: The patient appears in no acute distress, alert, awake, non-toxic, well cp developed, well nourished, uncomfortable. 07:25 Head/Face: Normocephalic, atraumatic. cp 07:25 Eyes: Periorbital structures: appear normal, Conjunctiva: normal, no exudate, no injection, Sclera: no appreciated abnormality, Lids and lashes: appear normal, bilaterally. 07:25 ENT: External ear(s): are unremarkable, Ear canal(s): are normal, clear, TM's: are normal, no evidence of bulging, no erythema, dullness, bilaterally, Nose: is normal, Mouth: Lips: moist, Oral mucosa: moist, Posterior pharynx: Tonsils: bilaterally enlarged, with erythema, with exudate, Uvula: midline, erythema, that is moderate, Voice: is hoarse. 07:25 Neck: ROM/movement: Meningeal signs: are not present, nuchal rigidity, is not appreciated, Lymph nodes: lymphadenopathy is appreciated, anterior cervical nodes. 07:25 Chest/axilla: Inspection: normal. 07:25 Cardiovascular: Rate: tachycardic, Rhythm: regular. 07:25 Respiratory: the patient does not display signs of respiratory distress, Respirations: normal, no use of accessory muscles, no retractions, labored breathing, is not present, Breath sounds: are clear throughout, no decreased breath sounds, no stridor, no wheezing. 07:25 Abdomen/GI: Exam negative for discomfort, distension, guarding, Inspection: abdomen appears normal. 07:25 Neuro: Orientation: to person, place \T\ time. Mentation: is normal, Motor: moves all fours, strength is normal, Sensation: is normal. Vital Signs: 07:15 BP 128 / 80; Pulse 102; Resp 16; Temp 99.3; Pulse Ox 99% ; Weight 83.91 kg (R); Height ll3 5 ft. 0 in. (152.40 cm) (R); 08:30 BP 112 / 74; Pulse 102; Resp 16; Pulse Ox 99% ; ll3 09:21 BP 110 / 73; Pulse 104; Resp 14; Pulse Ox 97% ; ll3 10:16 BP 117 / 71; Pulse 91; Resp 16; Pulse Ox 96% ; ll3 10:58 BP 116 / 78; Pulse 104; Resp 16; Pulse Ox 100% ; ll3 07:15 Body Mass Index 36.13 (83.91 kg, 152.40 cm) ll3 MDM: 07:04 Patient medically screened. 09:45 Data reviewed: vital signs, nurses notes, lab test result(s), radiologic studies, CT cp scan, I have discussed the patient's presentation/case with the attending Emergency Department Physician;. 09:45 ED course: Patient continues to be intolerant of oral liquids. 10:10 Physician consultation: was contacted at 10:05, regarding regarding transfer, to [facility]. patient's condition, phone consult with DR Gerber, ENT, who will consult on patient and requests transfer to hospitalist services. 07/28 07:11 Order name: CBC with Diff 07/28 07:11 Order name: BMP; Complete Time: 08:11 07/28 08:11 Interpretation: Normal except: NA 134; GLUC 109; BUN 6; GFR 82. 07/28 07:11 Order name: Lucas Screen Profile; Complete Time: 08:41 07/28 07:12 Order name: CBC with Automated Diff; Complete Time: 09:35 EDMS 07/28 08:08 Interpretation: Normal except: WBC 21.70; RBC 4.96; YRN% 85.2; LYM% 7.1; NEUT A 18.5; cp MNA 1.6. 07/28 08:08 Order name: Manual Differential; Complete Time: 09:35 EDMS 07/28 09:35 Interpretation: Normal except: SEGS 84; BANDS [F] 4; LYM 7. 07/28 08:11 Order name: Procalcitonin; Complete Time: 09:29 07/28 09:29 Interpretation: Abnormal: Procalcitonin 0.16. 07/28 08:11 Order name: Lactate; Complete Time: 09:20 07/28 09:21 Interpretation: LAC 1.1; Reviewed. 07/28 08:11 Order name: Blood Culture Adult (2) 07/28 08:11 Order name: Strep; Complete Time: 09:20 07/28 09:21 Interpretation: Reviewed. 07/28 08:50 Order name: Urine Dipstick-Ancillary; Complete Time: 09:20 EDMS 07/28 09:29 Interpretation: Normal except: UKET Trace. cp 07/28 08:52 Order name: Urine --Ancillary (enter results) em1 07/28 08:53 Order name: Urine --Ancillary; Complete Time: 10:35 EDMS 07/28 09:05 Order name: Throat Culture EDMS 07/28 07:11 Order name: IV; Complete Time: 07:52 cp 07/28 07:11 Order name: CT Soft Tissue Neck W/contr; Complete Time: 08:41 cp 07/28 07:11 Order name: Urine Dipstick-Ancillary (obtain specimen); Complete Time: 08:50 cp 07/28 07:11 Order name: Urine Test (obtain specimen); Complete Time: 08:50 cp 07/28 08:43 Order name: PO challenge; Complete Time: 09:01 cp 07/28 09:40 Order name: SARS-COV-2 RT PCR; Complete Time: 10:35 EDMS Administered Medications: 07:51 Drug: NS 0.9% 1000 ml Route: IV; Rate: 1 bolus; Site: right antecubital; ll3 10:33 Follow up: Response: No adverse reaction; IV Status: Completed infusion; IV Intake: ll3 1000ml 07:51 Drug: Lortab Liquid 10 ml Route: PO; ll3 09:20 Follow up: Response: No adverse reaction ll3 07:51 Drug: Decadron - Dexamethasone 10 mg Route: IVP; Site: right antecubital; ll3 08:30 Follow up: Response: No adverse reaction ll3 08:57 Drug: Unasyn (ampicillin-sulbactam) 3 grams Route: IVPB; Infused Over: 30 mins; Site: ll3 left antecubital; 10:05 Follow up: Response: No adverse reaction; IV Status: Completed infusion ll3 10:05 Follow up: IV Intake: 100ml ll3 09:19 Drug: GI Cocktail without - (Maalox Suspension 30 ml, Lidocaine Liquid 2 % 15 ll3 ml) Route: PO; 09:57 Follow up: Response: No adverse reaction; No change in condition ll3 09:57 Drug: morphine 4 mg Route: IVP; Site: right antecubital; ll3 10:33 Follow up: Response: No adverse reaction; Marked relief of symptoms ll3 10:57 Drug: NS 0.9% 1000 ml Route: IV; Rate: 125 ml/hr; Site: right antecubital; ll3 11:37 Follow up: Response: No adverse reaction; IV Status: Infusion continued upon transfer ll3 10:57 Drug: morphine 4 mg Route: IVP; Site: right antecubital; ll3 11:24 Follow up: Response: No adverse reaction; Pain is decreased ll3 Disposition Summary: 07/28/21 09:45 Transfer Ordered Transfer Location: [facility] cp Reason: Higher level of care cp Condition: Stable cp Problem: new cp Symptoms: have improved cp Accepting Physician: DR Perry(07/28/21 11:43) ll3 Diagnosis - Acute tonsillitis, unspecified cp Forms: - Medication Reconciliation Form cp - SBAR form cp Signatures: Dispatcher [employer] EDMS Cornelio Guidry PA PA cp Zahra Wade RN RN ll3 Corrections: (The following items were deleted from the chart) 09:41 08:11 CORONAVIRUS+MR.LAB.BRZ ordered. EDMA EDMS 10:41 09:45 Doctor cp cp 11:43 10:41 DR Perry cp ll3
[2021-07-28] MEDS ORDERED: MORPHINE 4 MG/ML SYR ONE ×2 (09:46→10:47)
[2021-07-28 11:49] VITALS: TEMP 99.3
[2021-07-28 11:53] VITALS: BP 116/78; O2SAT 100
== END 2021-07-28 11:43 | disposition short-term general hospital (02) ==
LOC: ER 06:21
DX: J03.90 Acute tonsillitis, unspecified (principal); Z20.822 Contact with and (suspected) exposure to COVID-19
CPT/HCPCS: 36415; 70491; 80048; 81003; 81025; 83605; 84145; 85025; 86308; 87040; 87070; 87081; 96361; 96365; 96375; 99285; J0295; J1100; J7030; Q9967; U0003